=== PATIENT | female | born 1985 | race American Indian/Alaskan Native ===

== ENCOUNTER 2018-09-05 20:01 | Outpatient (CLI) | payer OTHER ==
[2018-09-05] MEDS ORDERED: LACTATED RINGERS 500 ML IV ONE (20:47)
[2018-09-05 21:39] LABS: Hematocrit 35.3 % (30.3-42.9); Hemoglobin 12.4 gm/dl (10.1-14.3); Mean Corpuscular HGB Conc 35 % (30-34); Mean Corpuscular Hemoglobin 33 pg (28-32); Mean Corpuscular Volume 94 fl (79-97); Platelet Count 232 K/mm3 (140-440); Red Blood Count 3.77 M/mm3 (3.65-5.03); Red Cell Distribution Width 13.8 % (13.2-15.2)
[2018-09-05 22:08] LABS: Alanine Aminotransferase 6 units/L (7-56); Uric Acid 2.7 mg/dL (3.5-7.6)
[2018-09-05 23:03] LABS: Bilirubin,Urine NEG (Negative); Blood,Urine NEG (Negative); Color,Urine Straw (Yellow); Protein,Urine <15 mg/dL mg/dL (Negative); Urobilinogen,Urine < 2.0 mg/dL (<2.0); WBC,Urine < 1.0 /HPF (0.0-6.0)
[2018-09-05] MEDS ORDERED: FIORICET PO ONE (23:27)
[2018-09-06 00:26] VITALS: BP 134/80
== END 2018-09-06 01:12 | disposition home or self-care (01) ==
LOC: TRG 20:01
PROVIDERS: ATTEND Obstetrics & Gynecology
DX: O47.03 False labor before 37 completed weeks of gestation, third trimester (principal); O10.013 Pre-existing essential hypertension complicating pregnancy, third trimester; Z3A.34 34 weeks gestation of pregnancy
CPT/HCPCS: 36415; 59025; 81001; 82565; 83615; 84450; 84460; 84550; 85027